=== PATIENT | female | born 1945 | race African-American/Black ===

== ENCOUNTER 2017-04-19 18:24 | Emergency (ER) | payer OTHER ==
[~2017-04-19] VITALS: Ht 165.1 cm; Wt 70.8 kg
[~2017-04-19 18:24] MED LIST: ADULT LOW DOSE81 MG PO; ALPRAZOLAM 0.50.5 M1; AMLODIPINE BESY10 MG PO; BENAZEPRIL HCL40 MG PO; CALCIUM PO; CENTRUM SILVER1 EAC1 PO; CHLORTHALIDONE25 MG PO; CLONIDINE HCL0.2 M2 PO; FUROSEMIDE PO; HYDROCODONE-AP1 EA10; K-DUR10 ME1 PO; LATANOPROST2.5 ML OP; LEVOTHYROXIN0.025 MG PO; MAGNESIUM GLUC250 MG PO; MOBIC15 MG PO; TRAVATAN 0.004%5 ML; XANAX 0.25 MG0.25 MG PO
[2017-04-19] MEDS ORDERED: TIMOPTIC-XE5 ML OP (18:51)
[2017-04-19] MEDS ORDERED: METOPROLOL TART25 MG PO (18:52)
[2017-04-19] MEDS ORDERED: SENNA8.6 MG PO (18:52)
[2017-04-19] MEDS ORDERED: ASPIR 8181 MG PO (18:53)
[2017-04-19] MEDS ORDERED: ASPIRIN325 PO (18:54)
[2017-04-19] MEDS ORDERED: XARELTO10 MG PO (18:54)
[2017-04-19] MEDS ORDERED: OMEPRAZOLE 20 M20 M1 PO (18:55)
[2017-04-19] MEDS ORDERED: MIRALAX17 GM PO (18:55)
[2017-04-19] MEDS ORDERED: XANAX1 MG PO (18:56)
[2017-04-19] MEDS ORDERED: ZANAFLEX4 MG PO (18:56)
[2017-04-19 19:09] LABS: ABSOLUTE NEUTROPHILS 4.7 thou/uL (1.4-8.2); BASOPHILS 0.3 % (0.0-2.0); EOSINOPHILS 0.8 % (0.0-3.0); HEMATOCRIT 36.1 % (37.0-47.0); HEMOGLOBIN 12.2 gm/dL (12.0-15.0); LYMPHOCYTES 23.8 % (24.0-44.0); MCH 28.5 pg (26.0-34.0); MCHC 33.6 g/dL (28.0-37.0); MCV 84.7 fL (80.0-100.0); MONOCYTES 11.5 % (1.0-8.0); PLATELET COUNT 279 thou/uL (150-400); POLYS 63.6 % (36.0-66.0); RBC 4.27 mil/uL (4.20-5.00); RDW 14.1 % (10.5-14.5); WBC 7.3 thou/uL (4.0-11.0)
[2017-04-19 19:10] LABS: MANUAL DIFF NO
[2017-04-19 19:13] LABS: ANION GAP 6 mmol/L (7-16); BUN 14 mg/dL (7-18); CALCIUM 9.4 mg/dL (8.5-10.1); CHLORIDE 103 mmol/L (98-107); CO2 30 mmol/L (21-32); CREATININE 0.9 mg/dL (0.6-1.0); GLUCOSE 114 mg/dL (74-106); POTASSIUM 4.3 mmol/L (3.5-5.1); SODIUM 139 mmol/L (136-145)
[2017-04-19 19:20] LABS: ALBUMIN 3.1 g/dL (3.4-5.0); ALKALINE PHOSPHATASE 75 U/L (46-116); MAGNESIUM 2.1 mg/dL (1.8-2.4); SGOT 23 U/L (15-37); SGPT 22 U/L (30-65); TOTAL BILIRUBIN 0.4 mg/dL (<0.1-1.0); TOTAL PROTEIN 7.3 g/dL (6.4-8.2); TROPONIN-I < 0.04 ng/mL (<0.04-0.07)
[2017-04-19] MEDS ORDERED: PREDNISONE 20 M20 MG PO (20:52)
[2017-04-19] MEDS ORDERED: EYE DROP TEARS15 ML OP (20:52)
[2017-04-19] MEDS ORDERED: VALTREX1000 MG PO (20:52)
[2017-04-19 20:57] VITALS: BP 196/74
== END 2017-04-19 21:40 ==
LOC: ER 18:24
PROVIDERS: Emergency Medicine
DX: G51.0 Bell's palsy (principal); R00.2 Palpitations; I10 Essential (primary) hypertension; K21.9 Gastro-esophageal reflux disease without esophagitis; Z96.651 Presence of right artificial knee joint; Z88.2 Allergy status to sulfonamides

== ENCOUNTER 2018-07-23 11:43 | Emergency (ER) | payer OTHER ==
[~2018-07-23] VITALS: Ht 165.1 cm; Wt 66.7 kg
--- NOTE | ~2018-07-23 | EKG ---
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
--- NOTE | ~2018-07-23 | EKG ---
[place] [address] [facility] [place] [address] ELECTROCARDIOGRAM REPORT Name: SUSANA HILLMAN Room #: [facility]#: [id number] Admission: 07/23/18 Attend Phys: Discharge: Date of : 43 Report #: [id number] THIS REPORT FOR: //name// 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1945 Requested By: Arcelia Dennis Order Number: [id number] MD: Jeramie Fagan Measurements Intervals [place] Rate: 69 P: MD: QRS: -12 QRSD: 93 T: -26 QT: 454 QTc: 487 Interpretive Statements Atrial fibrillation Anterior infarct, old Borderline T abnormalities, inferior leads Compared to ECG 09/29/2017 15:52:22 Heart rate has slowed ST and T wave abnormality is less pronounced Electronically Signed On 07-23-2018 13:14:05 CDT by Jeramie Fagan [email or web address] <ELECTRONICALLY SIGNED> By: Jeramie Fagan MD, [facility] 07/23/18 1314 1154 1154 Jeramie Fagan MD, [facility] /EPI
[~2018-07-23 11:43] MED LIST changes: +ASPIR 8181 MG PO; +ASPIRIN325 PO; +EYE DROP TEARS15 ML OP; +METOPROLOL TART25 MG PO; +MIRALAX17 GM PO; +OMEPRAZOLE 20 M20 M1 PO; +PREDNISONE 20 M20 MG PO; +SENNA8.6 MG PO; +TIMOPTIC-XE5 ML OP; +VALTREX1000 MG PO; +XANAX1 MG PO; +XARELTO10 MG PO; +ZANAFLEX4 MG PO
[2018-07-23 12:30] LABS: ABSOLUTE NEUTROPHILS 2.5 thou/uL (1.4-8.2); BASOPHILS 0.2 % (0.0-2.0); EOSINOPHILS 0.8 % (0.0-3.0); HEMATOCRIT 39.1 % (37.0-47.0); HEMOGLOBIN 13.3 gm/dL (12.0-15.0); LYMPHOCYTES 37.9 % (24.0-44.0); MCH 28.6 pg (26.0-34.0); MCHC 33.9 g/dL (28.0-37.0); MCV 84.3 fL (80.0-100.0); PLATELET COUNT 223 thou/uL (150-400); POLYS 51.1 % (36.0-66.0); RBC 4.64 mil/uL (4.20-5.00); RDW 15.1 % (10.5-14.5); WBC 4.9 thou/uL (4.0-11.0)
[2018-07-23 12:38] LABS: CALCIUM 9.4 mg/dL (8.5-10.1); POTASSIUM 3.5 mmol/L (3.5-5.1)
[2018-07-23 12:44] LABS: ALBUMIN 3.6 g/dL (3.4-5.0); TOTAL BILIRUBIN 0.5 mg/dL (<0.1-1.0); TOTAL PROTEIN 7.2 g/dL (6.4-8.2)
[2018-07-23 13:40] VITALS: BP 132/72
== END 2018-07-23 13:56 | disposition home or self-care (01) ==
LOC: ER 11:43
PROVIDERS: Student in an Organized Health Care Education/Training Program
DX: I48.91 Unspecified atrial fibrillation (principal); Z88.2 Allergy status to sulfonamides; I10 Essential (primary) hypertension; K21.9 Gastro-esophageal reflux disease without esophagitis; Z96.651 Presence of right artificial knee joint; Z96.642 Presence of left artificial hip joint; Z86.73 Personal history of transient ischemic attack (TIA), and cerebral infarction without residual deficits